=== PATIENT | female | born 1995 | race Caucasian/White ===

== ENCOUNTER 2016-03-27 20:55 | Emergency (ER) | payer BC ==
[~2016-03-27] VITALS: Ht 165.1 cm; Wt 62.4 kg
[2016-03-27 21:00] VITALS: TEMP 36.5; Ht 165.1 cm; Wt 62.4 kg
[2016-03-27] MEDS ORDERED: BCPILLS PO (21:35)
--- NOTE | 2016-03-27 22:08 | DIAGNOSTIC IMAGING REPORT ---
RIGHT WRIST W/NAVICULAR MIN 3 VIEWS CLINICAL HISTORY: Right wrist pain following injury. COMPARISON: None FINDINGS: Alignment of the right wrist is anatomic. No acute fracture is identified. Scaphoid appears intact. IMPRESSION: No acute fracture or dislocation of the right wrist. Electronically signed by: Ta Molina M.D. 03/27/2016 10:06 PM Dictated Date/Time: 03/27/2016 10:05 PM
[2016-03-27] MEDS ORDERED: NORCO 5/325MG HOME PACK PO ONE (22:30)
[2016-03-27 22:42] VITALS: BP 107/92; PULSE 71; O2SAT 98
--- NOTE | 2016-03-28 00:07 | EMERGENCY ROOM VISIT NOTE ---
ED Visit Note First contact with patient: 21:34 CHIEF COMPLAINT: Wrist injury HISTORY OF PRESENT ILLNESS: This 20 year old female patient presents to the emergency department complaining of pain in the right wrist after falling while snowboarding about 2 hours ago. The patient is able to move their wrist. The patient states the pain is dull and 7/10. No laceration, no weakness. No numbness or tingling. The patient denies any other injury. The patient is able to move their fingers and elbow without difficulty. The patient has not had a previous fracture to this wrist. The patient has taken nothing for the pain. She is left-hand dominant. REVIEW OF SYSTEMS: A 6 system review of systems was performed with positives and pertinent negatives in the HPI. ALLERGIES: No known allergies MEDICATIONS: No chronic medications PMH: No chronic medical disease SOCIAL HISTORY: Student who lives locally PHYSICAL EXAM: Vital Signs: Reviewed Nurse's notes, vital signs stable. GENERAL : White female, in no acute distress, but appears to be in pain, well-developed , well-neurished. NEURO: Alert and oriented to person place and time. Normal sensation to light and sharp touch. MUSCULOSKELETAL: There is no deformity of the right wrist. There is tenderness and edema over distal radius. There is no snuff box tenderness. Range of motion is normal. There is no tenderness of the elbow, hand or fingers. Cartridge Loader strength 5/5. Radial pulse 2+. SKIN: Normal and intact. The hand is warm and well perfused with capillary refill less than 2 seconds. RIGHT WRIST W/NAVICULAR MIN 3 VIEWS CLINICAL HISTORY: Right wrist pain following injury. COMPARISON: None FINDINGS: Alignment of the right wrist is anatomic. No acute fracture is identified. Scaphoid appears intact. IMPRESSION: No acute fracture or dislocation of the right wrist. EMERGENCY DEPARTMENT COURSE: I examined the patient. She appears to have suffered an injury to her right wrist while snowboarding. She did not suffer additional injury in the accident. X-ray of the wrist was performed and does not show evidence of acute fracture or dislocation. The patient was placed in a splint and given information to follow with orthopedics. She was otherwise invited back to the ER with any new, worsening, or concerning symptoms. Current/Historical Medications Scheduled Control Pills ( Control Pills), 1 TAB PO DAILY Allergies Coded Allergies: No Known Allergies (Unverified , 2/10/17) Vital Signs Date Time Temp Pulse Resp B/P Pulse Ox O2 Delivery O2 Flow Rate FiO2 03/27/16 22:42 71 16 107/92 98 03/27/16 21:00 36.5 117 18 136/90 100 Room Air Medications Administered Medications (Trade) Dose Ordered Sig/Guillaume Route Start Time Stop Time Status Last Admin Dose Admin Acetaminophen/ Hydrocodone Bitart (Seneca 5/325mg Home Pack) 1 homepack UD ONCE PO 03/27/16 22:30 03/27/16 22:31 DC 03/27/16 22:36 1 HOMEPACK Departure Information Impression Primary Impression: Injury of right wrist Dispostion Home / Self-Care Condition GOOD Referrals Kendrick Tejeda, DO Forms HOME CARE DOCUMENTATION FORM, IMPORTANT VISIT INFORMATION Patient Instructions Carolyne GORE [facility] Additional Instructions You were seen and evaluated today on an emergency basis only. This is not a substitute for, or an effort to provide, complete comprehensive medical care. It is not possible to recognize and treat all injuries or illnesses in a single emergency department visit. For this reason it is recommended that you followup with Orthopedics, Dr. Tejeda 's office, in the next 1-2 weeks with any ongoing or persisting symptoms. For baseline pain relief you may alternate ibuprofen and acetaminophen every 4 hours for pain control. Take 600 mg ibuprofen (Advil) and then 4 hours later take 1000 mg acetaminophen (Tylenol). Do not take more than 3000 mg acetaminophen in a single day. Seneca (hydrocodone/acetaminophen) 5/325 mg (homoepack) every 6 hours as needed for worsening breakthrough pain. Do not drink or drive on [place]. This medication will likely make you tired. Do not take Sen[place] and Tylenol at the same time as both contain acetaminophen. Seneca may cause constipation. You may wish to take an [id number] stool softener like Colace if this occurs. You are welcome to return to the emergency department anytime with new, worsening, or concerning symptoms.
== END 2016-03-27 22:44 | disposition home or self-care (01) ==
LOC: C.EDB 20:56 → C.EDD 22:44
DX: S69.91XA Unspecified injury of right wrist, hand and finger(s), initial encounter (principal); W01.0XXA Fall on same level from slipping, tripping and stumbling without subsequent striking against object, initial encounter; Y93.23 Activity, snow (alpine) (downhill) skiing, snowboarding, sledding, tobogganing and snow tubing